=== PATIENT | male | born 1995 | race Caucasian/White ===

== ENCOUNTER 2019-05-20 10:19 | Inpatient (IN) | payer MEDICAID ==
[~2019-05-20] VITALS: Ht 170.2 cm; Wt 61.2 kg
[2019-05-20 14:30] VITALS: BP 108/60
[2019-05-20] MEDS ORDERED: ZOLPIDEM TARTRATE 10 MG TABLET PO PRN (14:30)
[2019-05-20 16:42] VITALS: BP 120/62
[2019-05-20] MEDS ORDERED: INFLUENZA VIRUS VACCINE QVS 2019-20 (3YR+)/PF 60 MCG/0.5 ML SYRINGE IM ONE (19:45)
[2019-05-20] MEDS: LORazepam 2 MG TABLET PO PRN (22:29)
[2019-05-20] MEDS: HALOPERIDOL 5 MG TABLET PO PRN (22:29)
[2019-05-21 01:50] VITALS: BP 125/75
[2019-05-21 08:21] VITALS: BP 121/64
[2019-05-21 08:22] LABS: ALANINE AMINOTRANSFERASE 31 U/L (12-78); ALBUMIN 3.9 g/dL (3.4-5.0); ALKALINE PHOSPHATASE 74 U/L (46-116); ANION GAP 5 mmol/L (8-16); ASPARTATE AMINOTRANSFERASE 24 U/L (15-37); BILIRUBIN,TOTAL 0.8 mg/dL (0.1-1.0); CALCIUM, TOTAL 8.8 mg/dL (8.8-10.5); CARBON DIOXIDE 30 mmol/L (22-29); CHLORIDE 104 mmol/L (98-107); CHOL/HDL RATIO 2.7 (4.2-7.3); CHOLESTEROL 133 mg/dL (131-200); CREATININE 1.03 mg/dL (0.60-1.30); GLOMERULAR FILTR. RATE CALC > 60 mL/min (>60); GLUCOSE,RANDOM 83 mg/dL (70-110); HDL CHOLESTEROL 50 mg/dL (40-60); LDL CHOL (CALC.) 69 mg/dL (0-130); POTASSIUM 4.4 mmol/L (3.5-5.1); SODIUM SERUM 139 mmol/L (136-145); THYROID STIMULATING HORMONE 0.86 uIU/mL (0.36-3.74); TOTAL PROTEIN, SERUM 6.3 g/dL (6.4-8.2); TRIGLYCERIDES 70 mg/dL (15-150); UREA NITROGEN, BLOOD 28 mg/dL (7-18)
[2019-05-21] MEDS: FLUoxetine HCL 20 MG CAPSULE PO SCH (10:41)
[2019-05-21 16:06] VITALS: BP 107/57
[2019-05-21] MEDS: LORazepam 2 MG TABLET PO PRN (17:55)
[2019-05-21] MEDS: HALOPERIDOL 5 MG TABLET PO PRN (17:56)
[2019-05-21] MEDS: OLANZapine 5 MG TABLET PO SCH (20:47)
[2019-05-22 00:37] VITALS: BP 115/60
[2019-05-22 08:18] VITALS: BP 123/68
[2019-05-22] MEDS: FLUoxetine HCL 20 MG CAPSULE PO SCH (08:21)
[2019-05-22] MEDS: LORazepam 2 MG TABLET PO PRN (08:24)
[2019-05-22 16:04] VITALS: BP 123/73
[2019-05-22] MEDS: OLANZapine 5 MG TABLET PO SCH (20:34)
[2019-05-23 06:37] VITALS: BP 118/69
[2019-05-23 08:25] VITALS: BP 112/65
[2019-05-23] MEDS: FLUoxetine HCL 20 MG CAPSULE PO SCH (08:44)
[2019-05-23 16:07] VITALS: BP 125/61
[2019-05-23] MEDS ORDERED: CloNIDine HCL 0.1 MG TABLET PO PRN (17:15)
[2019-05-23] MEDS ORDERED: LOPERAMIDE HCL 2 MG CAPSULE PO PRN (17:15)
[2019-05-23] MEDS ORDERED: DOCUSATE SODIUM 100 MG CAPSULE PO PRN (17:15)
[2019-05-23] MEDS ORDERED: ALBUTEROL SULFATE HFA 90 MCG/PUFF 8 GM INHALER IH PRN (17:15)
[2019-05-23] MEDS ORDERED: IBUPROFEN 400 MG TABLET PO PRN (17:15)
[2019-05-23] MEDS ORDERED: ACETAMINOPHEN 325 MG TABLET PO PRN (17:15)
[2019-05-23] MEDS ORDERED: ONDANSETRON HCL 4 MG TABLET PO PRN (17:15)
[2019-05-23] MEDS ORDERED: MAGNESIUM HYDROXIDE SUSPENSION 30 ML UDCUP PO PRN (17:15)
[2019-05-23] MEDS ORDERED: MAG HYDROX/AL HYDROX/SIMETH ES 30 ML SUSPENSION UDCUP PO PRN (17:15)
[2019-05-23] MEDS ORDERED: GuaiFENesin/D-METHORPHAN [SUGAR-FREE] 200-20MG/10 ML SYRUP UDCUP PO PRN (17:15)
[2019-05-23] MEDS ORDERED: PETROLATUM,WHITE 28 GM JELLY TP PRN (17:15)
[2019-05-23] MEDS ORDERED: NICOTINE 14 MG/24 HOUR PATCH TD PRN (17:15)
[2019-05-23] MEDS: OLANZapine 5 MG TABLET PO SCH (20:22)
[2019-05-23] MEDS: LORazepam 2 MG TABLET PO PRN (23:47)
[2019-05-24 00:12] VITALS: BP 127/76
[2019-05-24 08:00] VITALS: BP 121/60
[2019-05-24] MEDS: FLUoxetine HCL 20 MG CAPSULE PO SCH (08:24)
[2019-05-24] MEDS ORDERED: OLAN5TAB2 PO (11:00)
[2019-05-24] MEDS ORDERED: FLUO-191 PO (11:00)
== END 2019-05-24 11:30 | disposition home or self-care (01) | DRG 750 ==
LOC: B3A 14:34
PROVIDERS: ADMIT Psychiatry & Neurology Psychiatry; ATTEND Psychiatry & Neurology Psychiatry
DX: F25.0 Schizoaffective disorder, bipolar type (principal); R45.851 Suicidal ideations; R00.1 Bradycardia, unspecified; F12.10 Cannabis abuse, uncomplicated; F41.9 Anxiety disorder, unspecified; K21.9 Gastro-esophageal reflux disease without esophagitis; Z91.19 Patient's noncompliance with other medical treatment and regimen; Z28.21 Immunization not carried out because of patient refusal; Z71.51 Drug abuse counseling and surveillance of drug abuser
CPT/HCPCS: 84436; 84439; 84443; 90686

== ENCOUNTER 2023-10-16 10:53 | Inpatient (IN) | payer MEDICAID ==
[~2023-10-16] VITALS: Ht 172.7 cm; Wt 83.0 kg
[~2023-10-16 10:53] MED LIST: FLUO-177 PO; OLAN5TAB52 PO
[2023-10-16 12:51] LABS: GLUCOMETER DEV NAME(LOC) POC.BV; POC SARS-COV2 AG, FIA NEGATIVE (NEGATIVE)
[2023-10-16 13:16] VITALS: BP 115/70; PULSE 89; RESP 18; TEMP 97.7; O2SAT 96
[2023-10-16] MEDS ORDERED: NICOTINE POLACRILEX 2 MG LOZENGE PO PRN (17:45)
[2023-10-16 20:39] VITALS: BP 131/78; PULSE 90; RESP 17; TEMP 97.5; O2SAT 97
[2023-10-17] MEDS ORDERED: ONDANSETRON HCL 4 MG TABLET PO PRN (06:45)
[2023-10-17] MEDS ORDERED: GuaiFENesin/D-METHORPHAN [SUGAR-FREE] 200-20MG/10 ML SYRUP UDCUP PO PRN (06:45)
[2023-10-17] MEDS ORDERED: MAGNESIUM HYDROXIDE SUSPENSION 30 ML UDCUP PO PRN (06:45)
[2023-10-17] MEDS ORDERED: ALBUTEROL SULFATE HFA 90 MCG/PUFF 8 GM INHALER IH PRN (06:45)
[2023-10-17] MEDS ORDERED: DOCUSATE SODIUM 100 MG CAPSULE PO PRN (06:45)
[2023-10-17] MEDS ORDERED: ACETAMINOPHEN 325 MG TABLET PO PRN (06:45)
[2023-10-17] MEDS ORDERED: LOPERAMIDE HCL 2 MG CAPSULE PO PRN (06:45)
[2023-10-17] MEDS ORDERED: PETROLATUM,WHITE 28 GM JELLY TP PRN (06:45)
[2023-10-17] MEDS ORDERED: CloNIDine HCL 0.1 MG TABLET PO PRN (06:45)
[2023-10-17] MEDS ORDERED: MAG HYDROX/ALUMINUM HYD/SIMETH ES 30 ML SUSPENSION UDCUP PO PRN (06:45)
[2023-10-17] MEDS ORDERED: NICOTINE 14 MG/24 HOUR PATCH TD PRN (06:45)
[2023-10-17] MEDS ORDERED: IBUPROFEN 400 MG TABLET PO PRN (06:45)
[2023-10-17 08:20] LABS: BASOPHILS % (AUTO) 0.9 % (0.0-2.0); EOSINOPHILS % (AUTO) 4.2 % (1.0-6.0); HEMATOCRIT 41.8 % (41-53); LYMPHOCYTES # (AUTO) 1.5 K/uL (1.0-4.8); LYMPHOCYTES % (AUTO) 30.8 % (22.0-44.0); MEAN CORPUSCULAR HEMOGLOBIN 30.1 pg (26.0-34.0); MEAN CORPUSCULAR HGB CONC 33.6 G/dL (31.0-37.0); MEAN CORPUSCULAR VOLUME 90 fL (80-100); MONOCYTES # (AUTO) 0.8 K/uL (0.1-1.0); MONOCYTES % (AUTO) 15.8 % (2.0-9.0); NEUTROPHILS # (AUTO) 2.3 K/uL (1.8-7.7); NEUTROPHILS % (AUTO) 48.3 % (40.0-70.0); PLATELET COUNT (AUTO) 238 K/uL (150-450); RED BLOOD CELL COUNT(AUTO) 4.66 MIL/uL (4.50-5.90); RED CELL DISTRIBUTION WIDTH 13.3 % (11.5-14.5); WHITE BLOOD COUNT (AUTO) 4.8 K/uL (4.5-11.0)
[2023-10-17 08:51] LABS: ALANINE AMINOTRANSFERASE 74 U/L (12-78); ALBUMIN 3.3 g/dL (3.4-5.0); ALKALINE PHOSPHATASE 78 U/L (46-116); ANION GAP 6 mmol/L (8-16); ASPARTATE AMINOTRANSFERASE 43 U/L (15-37); BILIRUBIN,TOTAL 0.8 mg/dL (0.1-1.0); CALCIUM, TOTAL 8.7 mg/dL (8.8-10.5); CARBON DIOXIDE 30 mmol/L (22-29); CHLORIDE 105 mmol/L (98-107); CHOL/HDL RATIO 4.3 (4.2-7.3); CHOLESTEROL 138 mg/dL (131-200); CREATININE 1.04 mg/dL (0.60-1.30); GLOMERULAR FILTR. RATE CALC > 60 mL/min (>60); GLUCOSE,RANDOM 106 mg/dL (70-110); HDL CHOLESTEROL 32 mg/dL (40-60); LDL CHOL (CALC.) 96 mg/dL (0-130); SODIUM SERUM 141 mmol/L (136-145); T4 (THYROXINE) 8.2 mcg/dL (4.7-13.3); THYROID STIMULATING HORMONE 0.22 uIU/mL (0.36-3.74); TOTAL PROTEIN, SERUM 6.4 g/dL (6.4-8.2); TRIGLYCERIDES 52 mg/dL (15-150); UREA NITROGEN, BLOOD 24 mg/dL (7-18)
[2023-10-17 09:49] VITALS: BP 122/72; PULSE 67; RESP 18; TEMP 96.5; O2SAT 98
[2023-10-17] MEDS: ARIPiprazole 10 MG TABLET PO SCH (13:22)
[2023-10-17] MEDS: FLUoxetine HCL 20 MG CAPSULE PO SCH (13:22)
[2023-10-17] MEDS: LORazepam 2 MG TABLET PO PRN (19:54)
[2023-10-17] MEDS: HALOPERIDOL 5 MG TABLET PO PRN (19:54)
[2023-10-17 21:55] VITALS: BP 116/53; PULSE 70; RESP 18; TEMP 97.5; O2SAT 98
[2023-10-18 08:47] LABS: HEMOGLOBIN A1C 5.6 % (3.8-5.6)
[2023-10-18 09:15] VITALS: BP 104/69; PULSE 67; RESP 17; TEMP 98.3; O2SAT 97
[2023-10-18 09:21] LABS: CHOL/HDL RATIO 4.3 (4.2-7.3); THYROID STIMULATING HORMONE 0.19 uIU/mL (0.36-3.74)
[2023-10-18 20:38] VITALS: BP 119/72; PULSE 71; RESP 16; TEMP 98; O2SAT 98
[2023-10-18] MEDS: ZOLPIDEM TARTRATE 10 MG TABLET PO PRN (20:56)
[2023-10-19 08:29] LABS: APPEARANCE,URINE CLEAR (CLEAR); BILIRUBIN,URINE NEGATIVE (NEGATIVE); COLOR,URINE LIGHT YELLOW (YELLOW); GLUCOSE, URINE (UA) NEGATIVE (NEGATIVE); KETONES,URINE NEGATIVE (NEGATIVE); LEUKOCYTE ESTERASE ,URINE NEGATIVE (NEGATIVE); NITRATE,URINE NEGATIVE (NEGATIVE); OCCULT BLOOD,URINE NEGATIVE (NEGATIVE); PH,URINE 7.5 (5.0-8.0); PH,URINE DRUG SCREEN 7.5 (5.0-8.0); PROTEIN,URINE NEGATIVE (NEGATIVE); SPECIFIC GRAVITIY, URINE 1.024 (1.003-1.030)
[2023-10-19 08:43] LABS: ALCOHOL, URINE DRUG SCREEN NEGATIVE (NEGATIVE); AMPHET/METH SCREEN,URINE NEGATIVE (NEGATIVE); BARBITURATE SCREEN, URINE NEGATIVE (NEGATIVE); BENZODIAZEPINES SCREEN,URINE NEGATIVE (NEGATIVE); CANNABINOID SCREEN,URINE POSITIVE (NEGATIVE); COCAINE SCREEN,URINE NEGATIVE (NEGATIVE); METHADONE SCREEN, URINE NEGATIVE (NEGATIVE); OPIATE SCREEN,URINE NEGATIVE (NEGATIVE); PHENCYCLIDINE SCREEN,URINE NEGATIVE (NEGATIVE)
[2023-10-19 08:54] VITALS: BP 101/52; PULSE 66; RESP 18; TEMP 96.4; O2SAT 96
[2023-10-19 20:53] VITALS: BP 112/65; PULSE 64; RESP 18; TEMP 98.1; O2SAT 97
[2023-10-20 09:02] VITALS: BP 112/60; PULSE 75; RESP 17; TEMP 96.8; O2SAT 95
[2023-10-20] MEDS: ARIPiprazole LAUROXIL,SUBMICR. ER SUSPENSION 675 MG/2.4 ML SYRINGE IM ONE (16:43)
[2023-10-20] MEDS: ARIPiprazole LAUROXIL ER SUSPENSION 882 MG/3.2 ML SYRINGE IM ONE (16:44)
[2023-10-20] MEDS ORDERED: ARIP10TA38 PO (18:15)
== END 2023-10-20 19:10 | disposition home or self-care (01) | DRG 750 ==
LOC: B2S 16:07
PROVIDERS: ADMIT Psychiatry & Neurology Psychiatry; ATTEND Psychiatry & Neurology Psychiatry
PROC: GZHZZZZ Group Psychotherapy (ICD-10-PCS; principal; 2023-10-17)
PROC: GZ51ZZZ Individual Psychotherapy, Behavioral (ICD-10-PCS; 2023-10-17)
DX: F25.1 Schizoaffective disorder, depressive type (principal); R45.851 Suicidal ideations; E83.51 Hypocalcemia; Z20.822 Contact with and (suspected) exposure to COVID-19; F31.9 Bipolar disorder, unspecified; K21.9 Gastro-esophageal reflux disease without esophagitis; Z79.899 Other long term (current) drug therapy
CPT/HCPCS: 80053; 80061; 80307; 81003; 83036; 84436; 84439; 84443; 85025; 86592; Q9967